=== PATIENT | female | born 1960 | race Caucasian/White ===

== ENCOUNTER 2025-06-09 07:23 | Inpatient (IN) | payer SELFPAY ==
[~2025-06-09] VITALS: Ht 152.4 cm; Wt 65.3 kg
[2025-06-09 07:37] VITALS: O2SAT 96
[2025-06-09 08:08] LABS: HEMATOCRIT. 44.4 % (36.0-48.0); HEMOGLOBIN. 15.0 g/dL (12.0-16.0); MEAN PLATELET VOLUME 8.1 fl (7.4-10.4); PLATELET 253 x1000/uL (130-400); RED BLOOD CELL COUNT 5.07 mill/uL (4.2-5.4); RED CELL DISTRIBUTION WIDTH 13.5 % (11.6-14.6)
[2025-06-09 08:20] LABS: CREATININE 0.8 mg/dL (0.6-1.0); UREA NITROGEN BLOOD 15 mg/dL (9-23)
[2025-06-09 08:39] LABS: ASPARTATE AMINOTRANSFERASE 138 IU/L (<34); BILIRUBIN DIRECT 0.3 mg/dL (<=3.0); BILIRUBIN TOTAL 1.0 mg/dL (0.1-1.0); PROTEIN TOTAL 8.1 g/dL (6.0-8.3)
[2025-06-09] MEDS: KETOROLAC 15MG/ML VIAL IV ONE (08:55)
[2025-06-09] MEDS: ONDANSETRON HCL 4MG/2ML INJ IV ONE (08:59)
[2025-06-09 09:20] LABS: TROPONIN I HIGH SENSITIVITY < 4 ng/L (3.0-34)
[2025-06-09 10:22] LABS: BAND% 11.0 % (1.0-6.0); LYMPHOCYTES % MANUAL 1.0 % (20.0-60.0); MONOCYTES % MANUAL 1.0 % (2.0-8.0); NEUTROPHILS % MANUAL 87.0 % (45.0-75.0); PLATELET ESTIMATE NORMAL
[2025-06-09] MEDS: MORPHINE SULFATE 4 MG/ML INJ (FOR IV/IM USE) IV ONE (10:24)
[2025-06-09 12:00] VITALS: BP 108/58; PULSE 71; RESP 18; TEMP 36.7; O2SAT 98
[2025-06-09] MEDS ORDERED: DEXTROSE 50% WATER 50ML SYRINGE IV PRN (15:30)
[2025-06-09] MEDS ORDERED: ACETAMINOPHEN 325MG TABLET PO PRN (15:30)
[2025-06-09] MEDS ORDERED: DOCUSATE SODIUM 100MG CAPSULE PO PRN (15:30)
[2025-06-09] MEDS ORDERED: IPRATROPIUM/ALBUTEROL 0.5-3(2.5)MG/3ML NEB HHN PRN (15:30)
[2025-06-09] MEDS ORDERED: ONDANSETRON HCL 4MG/2ML INJ IV PRN (15:30)
[2025-06-09] MEDS ORDERED: CLONIDINE 0.1MG TABLET PO PRN (15:30)
[2025-06-09 15:52] VITALS: BP 108/53; PULSE 71; RESP 18; TEMP 36.418
[2025-06-09 16:00] VITALS: BP 111/61; PULSE 76; RESP 17; TEMP 36.7; O2SAT 98
[2025-06-09] MEDS: BLOOD SUGAR DIAGNOSTIC STRIP TEST SCH (16:40)
[2025-06-09] MEDS: INSULIN LISPRO 100 UNITS/ML SUBCUT SCH (17:10)
[2025-06-09] MEDS: POTASSIUM CHLORIDE 20MEQ TABLET SR PO NR (17:54)
[2025-06-09 20:00] VITALS: BP 139/67; PULSE 80; RESP 18; TEMP 37; O2SAT 94
[2025-06-09 23:42] LABS: HEPATITIS A AB IGM NEGATIVE (Negative)
[2025-06-09 23:43] LABS: HEPATITIS B CORE AB IGM NEGATIVE (Negative); HEPATITIS C AB NON REACTIVE (Neg) (Negative)
[2025-06-10] VITALS: BP 138/68; PULSE 82; RESP 18; TEMP 36.9; O2SAT 97
[2025-06-10 02:18] LABS: CLARITY URINE CLOUDY (CLEAR); COLOR URINE DARK YELLOW (YELLOW); GLUCOSE URINE TRACE (NEGATIVE); KETONES URINE TRACE (NEGATIVE); LEUKOCYTE ESTERASE URINE TRACE (NEGATIVE); NITRITE URINE NEGATIVE (NEGATIVE); OCCULT BLOOD URINE TRACE (NEGATIVE); PH URINE 6.0 (4.5-8.0); PROTEIN URINE 1+ (NEGATIVE); SPECIFIC GRAVITY URINE 1.026 (1.005-1.030); UROBILINOGEN URINE 1.0 E.U./dL (0.2-1.0)
[2025-06-10 02:50] LABS: *AMPHETAMINES SCREEN URINE NEGATIVE (NEGATIVE); *BARBITURATES SCREEN URINE NEGATIVE (NEGATIVE); *BENZODIAZEPINES SCREEN URINE NEGATIVE (NEGATIVE); *COCAINE SCREEN URINE NEGATIVE (NEGATIVE); CANNABINOID URINE SCREEN NEGATIVE (NEGATIVE); ECSTASY MDMA SCREEN URINE NEGATIVE (NEGATIVE); METHADONE URINE SCREEN NEGATIVE (NEGATIVE); OPIATES URINE SCREEN PRESUMPTIVE POSITIVE (NEGATIVE); PHENCYCLIDINE URINE SCREEN NEGATIVE (NEGATIVE)
[2025-06-10 03:01] LABS: SQUAMOUS EPITHELIAL CELL URINE 1+ /lpf (RARE/1+)
[2025-06-10 03:06] LABS: WBC URINE 0-2 /hpf (0-2)
[2025-06-10 03:09] LABS: BACTERIA URINE TRACE
[2025-06-10 04:00] VITALS: BP 105/43; PULSE 81; RESP 18; TEMP 36.6; O2SAT 92
[2025-06-10 07:45] LABS: CREATININE 0.9 mg/dL (0.6-1.0); UREA NITROGEN BLOOD 16 mg/dL (9-23)
[2025-06-10 07:47] LABS: ASPARTATE AMINOTRANSFERASE 104 IU/L (<34); BILIRUBIN TOTAL 0.9 mg/dL (0.1-1.0)
[2025-06-10 07:48] LABS: PROTEIN TOTAL 6.3 g/dL (6.0-8.3)
[2025-06-10 08:00] VITALS: BP 109/56; PULSE 91; RESP 17; TEMP 36.4; O2SAT 97
[2025-06-10 08:00] LABS: BASOPHILS % 0.4 % (0.0-2.0); EOSINOPHILS % 0.5 % (0.0-5.0); HEMATOCRIT. 41.4 % (36.0-48.0); HEMOGLOBIN. 13.5 g/dL (12.0-16.0); LYMPHOCYTES % 27.3 % (20.0-50.0); MEAN PLATELET VOLUME 8.6 fl (7.4-10.4); MONOCYTES % 14.4 % (2.0-8.0); NEUTROPHILS % 57.4 % (40.0-76.0); PLATELET 209 x1000/uL (130-400); RED BLOOD CELL COUNT 4.70 mill/uL (4.2-5.4); RED CELL DISTRIBUTION WIDTH 13.7 % (11.6-14.6)
[2025-06-10] MEDS: KCL 20MEQ/100ML PREMIX 100 ML IV SCH (11:33)
[2025-06-10 12:00] VITALS: BP 119/60; PULSE 87; RESP 18; TEMP 36.7; O2SAT 96
[2025-06-10] MEDS: ACETAMINOPHEN 325MG TABLET PO PRN (12:18)
[2025-06-10 16:00] VITALS: BP 112/58; PULSE 82; RESP 19; TEMP 36.6; O2SAT 98
[2025-06-10 20:00] VITALS: BP 125/56; PULSE 77; RESP 17; TEMP 37.2; O2SAT 100
[2025-06-11] VITALS: BP 103/55; PULSE 62; RESP 16; TEMP 36.8; O2SAT 96
[2025-06-11 04:00] VITALS: BP 98/36; PULSE 64; RESP 17; TEMP 36.4; O2SAT 98
[2025-06-11 07:48] LABS: CREATININE 0.7 mg/dL (0.6-1.0)
[2025-06-11 07:49] LABS: UREA NITROGEN BLOOD 11 mg/dL (9-23)
[2025-06-11 07:52] LABS: HEMATOCRIT. 41.3 % (36.0-48.0); HEMOGLOBIN. 13.7 g/dL (12.0-16.0); MEAN PLATELET VOLUME 8.3 fl (7.4-10.4); PLATELET 206 x1000/uL (130-400); RED BLOOD CELL COUNT 4.68 mill/uL (4.2-5.4); RED CELL DISTRIBUTION WIDTH 13.5 % (11.6-14.6)
[2025-06-11 08:00] VITALS: BP 134/54; PULSE 64; RESP 17; TEMP 36.3; O2SAT 97
[2025-06-11] MEDS: POTASSIUM CHLORIDE 20MEQ TABLET SR PO NR (09:59)
[2025-06-11 12:00] VITALS: BP 120/60; PULSE 64; RESP 17; TEMP 36.3; O2SAT 97
[2025-06-11 16:00] VITALS: BP_SYST 118; BP_SYST 130; BP_DIAS 62; BP_DIAS 64; PULSE 64; PULSE 76; RESP 17; RESP 18; TEMP 36.4; TEMP 36.5; O2SAT 98
[2025-06-11 19:20] LABS: EOSINOPHILS % MANUAL 2.0 % (0.0-5.0); LYMPHOCYTES % MANUAL 43.0 % (20.0-60.0); MONOCYTES % MANUAL 17.0 % (2.0-8.0); NEUTROPHILS % MANUAL 38.0 % (45.0-75.0); PLATELET ESTIMATE NORMAL
[2025-06-11 20:00] VITALS: BP 106/53; PULSE 69; RESP 18; TEMP 37.6; O2SAT 98
[2025-06-12] VITALS: BP 103/49; PULSE 58; RESP 18; TEMP 36.3; O2SAT 97
[2025-06-12 04:00] VITALS: BP 101/47; PULSE 61; RESP 18; TEMP 36.4; O2SAT 99
[2025-06-12 08:00] VITALS: BP 111/59; PULSE 68; RESP 17; TEMP 36.7; O2SAT 97
[2025-06-12 12:00] VITALS: BP 105/54; PULSE 69; RESP 18; TEMP 36.6; O2SAT 97
[2025-06-12 16:00] VITALS: BP 119/58; PULSE 70; RESP 18; TEMP 36.6; O2SAT 97
[2025-06-12 20:00] VITALS: BP 129/48; PULSE 61; RESP 19; TEMP 36.4; O2SAT 96
[2025-06-13] VITALS: BP 124/79; PULSE 63; RESP 19; TEMP 36.4; O2SAT 98
[2025-06-13 04:00] VITALS: BP 112/48; PULSE 71; RESP 19; TEMP 36.6; O2SAT 98
[2025-06-13 08:00] VITALS: BP 122/55; PULSE 66; RESP 20; TEMP 36.6; O2SAT 98
[2025-06-13 12:00] VITALS: BP 118/56; PULSE 61; RESP 20; TEMP 36.4; O2SAT 98
[2025-06-13 13:32] LABS: BASOPHILS % 0.5 % (0.0-2.0); EOSINOPHILS % 1.9 % (0.0-5.0); HEMATOCRIT. 44.8 % (36.0-48.0); HEMOGLOBIN. 15.1 g/dL (12.0-16.0); LYMPHOCYTES % 36.8 % (20.0-50.0); MEAN PLATELET VOLUME 8.3 fl (7.4-10.4); MONOCYTES % 9.8 % (2.0-8.0); NEUTROPHILS % 51.0 % (40.0-76.0); PLATELET 240 x1000/uL (130-400); RED BLOOD CELL COUNT 5.12 mill/uL (4.2-5.4); RED CELL DISTRIBUTION WIDTH 13.4 % (11.6-14.6)
[2025-06-13 13:46] LABS: CREATININE 0.7 mg/dL (0.6-1.0)
[2025-06-13 13:47] LABS: UREA NITROGEN BLOOD 9 mg/dL (9-23)
[2025-06-13 16:00] VITALS: BP 109/54; PULSE 65; RESP 20; TEMP 36.3; O2SAT 97
[2025-06-13] MEDS: VANCOMYCIN 125MG/2.5ML ORAL SYR PO SCH (17:27)
[2025-06-13] MEDS ORDERED: VANCOMYCIN 1000MG/20ML ORAL SOLN PO SCH (18:00)
[2025-06-13 20:00] VITALS: BP 129/63; PULSE 74; RESP 18; TEMP 36.1; O2SAT 98
[2025-06-14] VITALS: BP 114/58; PULSE 75; RESP 18; TEMP 35.8; O2SAT 96
[2025-06-14 04:00] VITALS: BP 104/59; PULSE 71; RESP 18; TEMP 35.9; O2SAT 100
[2025-06-14 08:00] VITALS: BP 100/58; PULSE 78; RESP 16; TEMP 36.3; O2SAT 97
[2025-06-14 12:00] VITALS: BP 120/57; PULSE 67; RESP 16; TEMP 36.5; O2SAT 97
[2025-06-14 16:00] VITALS: PULSE 73; RESP 16; TEMP 36.5; O2SAT 97
[2025-06-14 17:18] VITALS: BP 129/59; PULSE 72; RESP 18; TEMP 97.9
== END 2025-06-14 18:20 | disposition home or self-care (01) | DRG 244 ==
LOC: ER 07:23 → 7EST 13:29 → EDBEDREQTM 13:39 → EDBEDREQ 13:39 → ENRESERV 13:53
PROVIDERS: ADMIT Family Medicine Adult Medicine; ATTEND Family Medicine Adult Medicine
DX: K57.30 Diverticulosis of large intestine without perforation or abscess without bleeding (principal); K76.0 Fatty (change of) liver, not elsewhere classified; E11.9 Type 2 diabetes mellitus without complications; E87.6 Hypokalemia; D72.825 Bandemia; R74.01 Elevation of levels of liver transaminase levels; Z79.84 Long term (current) use of oral hypoglycemic drugs; Z90.49 Acquired absence of other specified parts of digestive tract
CPT/HCPCS: 36415; 74176; 76700; 80048; 80053; 80076; 80305; 81003; 82962; 83036; 84484; 85025; 86705; 86709; 87015; 87045; 87340; 87427; 87449; 87493; 89055; 93005; 99285; J1885; J2270; J2405; J3373; J3480